=== PATIENT | female | born 1995 | race Caucasian/White ===

== ENCOUNTER 2017-10-06 13:09 | Emergency (ER) | payer OTHER ==
[2017-10-06 14:08] VITALS: TEMP 98.4
--- NOTE | 2017-10-06 16:24 | EDPHY ---
H & P Stated Complaint: ABDOMINAL PAIN X 3 WEEKS Time Seen by Provider: 10/06/17 16:10 HPI/ROS: CHIEF COMPLAINT: Abdominal pain HISTORY OF PRESENT ILLNESS: Patient is a 21-year-old female who comes to the emergency department her mom complaining of abdominal pain. She states that it is been present for 3 weeks. She states that the pain is migratory and crampy. She has had intermittent diarrhea and constipation. No bleeding. No vomiting or nausea. No fevers. She occasionally has some vaginal spotting. She denies risk of . She denies urinary symptoms. She has seen by her regular doctor Gonzalo who has tried high fiber diet and antacids without success. Mom states this all began about 3 weeks ago when her dog became ill and is concerned about stress. REVIEW OF SYSTEMS: Constitutional: denies: chills, fever, recent illness, recent injury EENTM: denies: blurred vision, double vision, nose congestion Respiratory: denies: cough, shortness of breath Cardiac: denies: chest pain, irregular heart rate, lightheadedness, palpitations Gastrointestinal/Abdominal: See HPI denies: nausea, vomiting, blood streaked stools Genitourinary: denies: dysuria, frequency, hematuria, pain Musculoskeletal: denies: joint pain, muscle pain Skin: denies: lesions, rash, jaundice, bruising Neurological: denies: headache, numbness, paresthesia, tingling, dizziness, weakness Hematologic/Lymphatic: denies: blood clots, easy bleeding, easy bruising Immunologic/allergic: denies: HIV/AIDS, transplant EXAM: GENERAL: Well-appearing, well-nourished and in no acute distress. HEAD: Atraumatic, normocephalic. EYES: Pupils equal round and reactive to light, extraocular movements intact, sclera anicteric, conjunctiva are normal. ENT: TMs normal, nares patent, oropharynx clear without exudates. Moist mucous membranes. NECK: Normal range of motion, supple without lymphadenopathy or JVD. LUNGS: Breath sounds clear to auscultation bilaterally and equal. No wheezes rales or rhonchi. HEART: Regular rate and rhythm without murmurs, rubs or gallops. ABDOMEN: Soft, nontender, normoactive bowel sounds. No guarding, no rebound. No masses appreciated. BACK: No CVA tenderness, no spinal tenderness, step-offs or deformities EXTREMITIES: Normal range of motion, no pitting or edema. No clubbing or cyanosis. NEUROLOGICAL: Cranial nerves II through XII grossly intact. Normal speech, normal gait. 5/5 strength, normal movement in all extremities, normal sensation PSYCH: Normal mood, normal affect. SKIN: Warm, dry, normal turgor, no visible rashes or lesions. Source: Patient Exam Limitations: No limitations - Personal History LMP (Females 10-55): 15-21 Days Ago Current Tetanus/Diphtheria Vaccine: Yes Current Tetanus Diphtheria and Acellular Pertussis (TDAP): Yes - Medical/Surgical History Hx Asthma: No Hx Chronic Respiratory Disease: No Hx Diabetes: No Hx Cardiac Disease: No Hx Renal Disease: No Hx Cirrhosis: No Hx Alcoholism: No Hx HIV/AIDS: No Hx Splenectomy or Spleen Trauma: No Other PMH: GERD - Social History Smoking Status: Never smoked Alcohol Use: Sober Drug Use: None Constitutional: Initial Vital Signs Temperature (C) 36.9 C 10/06/17 14:04 Heart Rate 76 10/06/17 14:04 Respiratory Rate 18 10/06/17 14:04 Blood Pressure 102/72 10/06/17 14:04 O2 Sat (%) 100 10/06/17 14:04 O2 Delivery Mode Room Air Allergies/Adverse Reactions: No Known Allergies Allergy (Unverified 09/03/09 22:23) Home Medications: Medication Instructions Recorded Flonase nasal spray 09/03/09 Medical Decision Making ED Course/Re-evaluation: 5:25 p.m. The patient's abdominal exam remains benign. She and her mom are ready to go home. I discussed follow up with GI. Her lab work is reassuring. I suggested elimination diet until she sees GI. Differential Diagnosis: Partial list of the Differential diagnosis considered include but were not limited to; irritable bowel disease, ulcerative colitis, celiac disease and although unlikely based on the history and physical exam, I also considered ovarian cyst, appendicitis, biliary disease, peptic ulcer disease, . I discussed these differential diagnoses and the plan with the patient as well as the usual and expected course. The patient understands that the diagnosis is provisional and that in medicine we are not always correct and that further workup is often warranted. Usual and customary warnings were given. All of the patient's questions were answered. The patient was instructed to return to the emergency department should the symptoms at all worsen or return, otherwise to followup with the physician as we discussed. - Data Points Laboratory Results: Laboratory Results 10/06/17 16:31 10/06/17 16:31 Departure - Departure Disposition: Home, Routine, Self-Care Clinical Impression: Abdominal pain Qualifiers: Abdominal location: generalized Qualified Code(s): R10.84 - Generalized abdominal pain Diarrhea Qualifiers: Diarrhea type: unspecified type Qualified Code(s): R19.7 - Diarrhea, unspecified Condition: Fair Instructions: Acute Diarrhea (ED), Abdominal Pain (ED) Referrals: Malik Sánchez MD [Primary Care Provider] - As per Instructions Jocelyn Lozano MD [Medical Doctor] - As per Instructions
[2017-10-06 16:41] LABS: PLATELET COUNT 334 10^3/uL (150-400)
[2017-10-06 18:16] VITALS: BP 109/66; PULSE 72; RESP 13; O2SAT 98
== END 2017-10-06 18:15 | disposition home or self-care (01) ==
DX: R19.7 Diarrhea, unspecified (principal); R10.84 Generalized abdominal pain